=== PATIENT | male | born 1940 | race Caucasian/White ===

== ENCOUNTER 2018-12-14 02:52 | Inpatient (IN) | payer OTHER ==
[2018-12-14 03:43] LABS: #Eosinphils 0.1 thou/uL (0.0-0.7); #Lymphocytes 1.3 thou/uL (1.20-3.40); #Monocytes 1.2 thou/uL (0.11-0.59); #Neutrophils 9.2 thou/uL (1.40-6.50); %Basophils 0.2 % (0.0-1.0); %Eosinophils 0.5 % (0.0-10.0); %Lymphocytes 10.8 % (21.0-51.0); %Neutrophils 78.5 % (42.0-75.0); Hemoglobin 15.6 g/dL (14.0-18.0); Mean Corpuscular HGB CONC 32.3 g/dL (32.0-36.0); Mean Corpuscular Hemoglobin 27.5 pg (27.0-31.0); Mean Corpuscular Volume 85.2 fL (78.0-98.0); Mean Platelet Volume 8.9 fL (7.4-10.4); Platelet Count 181 thou/uL (130-400); Red Blood Cell (RBC) Count 5.66 mill/uL (4.70-6.10); White Blood Cell (WBC) Count 11.7 thou/uL (4.8-10.8)
[2018-12-14 03:50] LABS: INR-International Normal Ratio 1.1; Prothrombin Time 14.7 SEC (12.0-14.7)
[2018-12-14 03:51] LABS: PTT 25.4 SEC (22.9-36.1)
[2018-12-14 04:03] LABS: ALT (SGPT) 24 U/L (8-55); AST (SGOT) 51 U/L (5-34); Albumin 3.8 g/dL (3.4-4.8); Alkaline Phosphatase 45 U/L (40-150); Anion Gap 18 mmol/L (10-20); BUN (Urea Nitrogen) 26 mg/dL (8.4-25.7); Bilirubin, Total 1.2 mg/dL (0.2-1.2); Calc. Creatinine Clearance 0 mL/min (70-130); Calcium 9.4 mg/dL (7.8-10.44); Carbon Dioxide 21 mmol/L (23-31); Chloride 105 mmol/L (98-107); Estimated GFR-MDRD 52; Glucose 241 mg/dL (83-110); Potassium 3.9 mmol/L (3.5-5.1); Protein, Total 6.8 g/dL (5.8-8.1); Sodium 140 mmol/L (136-145)
[2018-12-14 04:25] LABS: CKMB 23.8 ng/mL (0-6.6)
[2018-12-14] MEDS ORDERED: levETIRAcetam In NaCl (Iso-Os) 1,500 MG in Premix Bag 1 BAG IVPB SCH (04:30)
[2018-12-14] MEDS ORDERED: Dextrose 50% Abboject 50 ML SYRINGE SLOW IVP PRN ×2 (05:36→09:57)
[2018-12-14] MEDS ORDERED: Ondansetron ODT 4 MG TAB PO PRN (05:36)
[2018-12-14] MEDS ORDERED: Dextrose 5% in Water 1,000 ML IV PRN ×2 (05:36→09:57)
[2018-12-14] MEDS ORDERED: Morphine 4 MG/ML VIAL SLOW IVP PRN (05:36)
[2018-12-14] MEDS ORDERED: Ondansetron PF 4 MG/2 ML Vial IVP PRN (05:36)
[2018-12-14] MEDS ORDERED: Acetaminophen 500 MG TAB PO PRN (05:46)
[2018-12-14 06:04] LABS: Bilirubin Negative (Negative); Blood, Urine Large (Negative); Clarity CLEAR (Clear); Glucose, Urine (Dipstick) 500 mg/dL (Negative); Leukocyte Small (Negative); Nitrite Negative (Negative); Protein, Urine (Dipstick) 100 mg/dL (Neg-Trace); Urobilinogen 0.2 mg/dL (0.2-1.0); pH, Urine 5.5 (5.0-9.0)
[2018-12-14 06:07] LABS: Bacteria/HPF None Seen HPF (None Seen); Hyaline Casts/LPF 4-6 HYALINE CAST LPF (0-3 Hyaline); Pathc Cast-AUWi Flag 0.54 (0-2.49); Squamous Epithelial 0-3 HPF (0-3)
[2018-12-14 06:19] LABS: RBC/HPF 21-50 HPF (0-3)
[2018-12-14 06:21] LABS: Renal Epithelial 0-3 HPF (0-3)
[2018-12-14] MEDS: Sodium Chloride 0.9% 1,000 ML IV SCH ×4 (06:34→20:05)
[2018-12-14 06:51] VITALS: BMI 25.7
--- NOTE | 2018-12-14 07:48 | PDOC.GSPN ---
Surgery Progress Note: Subj - Subjective Narrative: Sleeping this am but nurse says awakens to voice to answer questions Surgery Progress Note: Obj - Vital signs Vital signs: Vital Signs - Most Recent Temp Pulse Resp BP Pulse Ox 97.7 F 98 12/14/18 07:15 12/14/18 06:24 - Physical Exam General: no distress Cardiovascular: regular rate and rhythm Respiratory: clear to auscultation Abdomen: soft, non tender (Neuro: GCS 13, eyes to voice, confused) Surgery Progress Note: Results - Labs Result Diagrams: 12/14/18 03:33 12/14/18 03:33 Lab results: Laboratory Results - last 24 hr 12/14/18 12/14/18 12/14/18 03:33 03:33 03:33 WBC RBC Hgb Hct MCV MCH MCHC RDW Plt Count MPV Neutrophils % Lymphocytes % Monocytes % Eosinophils % Basophils % Neutrophils # Lymphocytes # Monocytes # Eosinophils # Basophils # PT 14.7 INR 1.1 APTT 25.4 Sodium 140 Potassium 3.9 Chloride 105 Carbon Dioxide 21 L Anion Gap 18 BUN 26 H Creatinine 1.33 H Estimated GFR (MDRD) 52 Glucose 241 H Calcium 9.4 Total Bilirubin 1.2 AST 51 H ALT 24 Alkaline Phosphatase 45 CK-MB (CK-2) 23.8 H* Troponin I 0.039 H Serum Total Protein 6.8 Albumin 3.8 Globulin 3.0 Albumin/Globulin Ratio 1.3 Urine Color Urine Clarity Urine pH Ur Specific [place] Urine Protein Urine Glucose (UA) Urine Ketones Urine Blood Urine Nitrite Urine Bilirubin Urine Urobilinogen Ur Leukocyte Esterase Urine RBC Urine WBC Ur Squamous Epith Cells Ur Renal Epithelial Cell Urine Bacteria Hyaline Casts 12/14/18 12/14/18 03:33 05:45 WBC 11.7 H RBC 5.66 Hgb 15.6 Hct 48.2 MCV 85.2 MCH 27.5 MCHC 32.3 RDW 13.0 Plt Count 181 MPV 8.9 Neutrophils % 78.5 H Lymphocytes % 10.8 L Monocytes % 10.0 Eosinophils % 0.5 Basophils % 0.2 Neutrophils # 9.2 H Lymphocytes # 1.3 Monocytes # 1.2 H Eosinophils # 0.1 Basophils # 0.0 PT INR APTT Sodium Potassium Chloride Carbon Dioxide Anion Gap BUN Creatinine Estimated GFR (MDRD) Glucose Calcium Total Bilirubin AST ALT Alkaline Phosphatase CK-MB (CK-2) Troponin I Serum Total Protein Albumin Globulin Albumin/Globulin Ratio Urine Color YELLOW Urine Clarity CLEAR Urine pH 5.5 Ur Specific [place] 1.020 Urine Protein 100 H Urine Glucose (UA) 500 H Urine Ketones 15 H Urine Blood Large H Urine Nitrite Negative Urine Bilirubin Negative Urine Urobilinogen 0.2 Ur Leukocyte Esterase Small H Urine RBC 21-50 H Urine WBC 11-20 H Ur Squamous Epith Cells 0-3 Ur Renal Epithelial Cell 0-3 Urine Bacteria None Seen Hyaline Casts 4-6 HYALINE CAST H Surgery Progress Note: A/P - Problem (1) Subdural hematoma Current Visit: Yes Code(s): S06.5X9A - TRAUM SUBDR HEM W LOC OF UNSP DURATION , INIT Status: Acute - Plan Plan: With [facility] -continue obs, continue neuro checks. -see Lizzie More NP H&P for full details -Neurosurg to see
[2018-12-14 08:20] LABS: CKMB 18.4 ng/mL (0-6.6)
[2018-12-14] MEDS ORDERED: Ciprofloxacin 500 MG TAB PO SCH ×2 (08:45→20:00)
[2018-12-14] MEDS: Famotidine/PF 20 mg/2ml Vial SLOW IVP SCH ×2 (09:27→20:04)
[2018-12-14] MEDS ORDERED: HumaLOG 300 UNITS/3 ML VIAL SC PRN (09:57)
--- NOTE | 2018-12-14 10:32 | RAD ---
RADIOGRAPH CHEST 1 VIEW: DATE: 12/14/2018 HISTORY: 78-year-old male with sepsis FINDINGS: There is no airspace density, pulmonary edema, or pneumothorax. The lateral costophrenic angles are n ot effaced. Evidence of previous CABG. Left subclavian dual lead pacemaker. IMPRESSION: No acute pulmonary findings.
--- NOTE | 2018-12-14 10:50 | HP ---
CONSULTS: Neurosurgery. HISTORY OF PRESENT ILLNESS: This is a 78-year-old gentleman, who was a transfer from [facility]. The patient is an inmate, who fell approximately 5 days ago. The patient denies being weak, dizzy, shortness of breath, or chest pain prior to falling, although the patient is unclear of how he fell. The patient was evaluated and a CT scan was found to be normal. The patient was then discharged back to long term in [place]. The patient returned to [facility] for altered mental status on 12/13/2018. The patient was found to have bilateral subdural hematomas 8 mm on the left and small parafalcine subarachnoid hemorrhage, no midline shift. The patient also reports that he had a shaking episode of the right upper and right lower extremities a couple of days after the initial fall. The patient was also diagnosed with a urinary tract infection. The patient was evaluated by Dr. Douglas in the emergency room and Neurosurgery was also consulted. Trauma Service was asked to admit the patient. The patient has had no seizure-like activity. No fevers. No chills. The patient currently has no complaints at this time. The patient denies any chest pain or shortness of breath. The patient does have mild swelling to the left lower extremity with redness and +1 pitting edema in which he says is normal for him, this is the site where his bypass graft was obtained. The patient with significant past medical history of coronary artery disease. The patient was given Rocephin and started on Keppra IV in the emergency room. The patient is currently awake, alert, and oriented x3. The patient is very slow when answering questions. PAST MEDICAL HISTORY: Coronary artery disease; type 2 diabetes; COPD; CHF; hyperlipidemia; hypertension; GERD; pacemaker, which was placed in 2011; anemia; angina; frequent boils; arthritis; and enlarged prostate. PAST SURGICAL HISTORY: CABG in 1991, cardiac stents. SOCIAL HISTORY: The patient is an inmate of the [employer]. The patient has smoked for 50 years, stopped in 1991. ALLERGIES: DENIES ANY DRUG ALLERGIES. HOME MEDICATIONS: 1. Amlodipine 10 mg daily. 2. Aspirin 81 mg daily. 3. Digoxin 0.125 mg daily. 4. Glipizide 5 mg daily. 5. Lasix 40 mg once a day in the morning. 6. Lisinopril 10 mg daily. 7. Metoprolol 25 mg 2 times a day. 8. Omeprazole 20 mg daily. PHYSICAL EXAMINATION: VITAL SIGNS: Temperature 98.7, SpO2 of 99% on room air, respirations 16, pulse 76, and blood pressure 154/87. GENERAL: The patient is awake and alert, in no distress. The patient answers questions very slowly, oriented to person, place, and time. GCS 15. HEENT: Head is atraumatic, normocephalic. Small healing abrasion to the right forehead, bruising to the right chin area and bridge of nose area. Pupils equal and reactive at 3 mm bilateral. Mucous membranes dry. NECK: Trachea is midline. There is no cervical tenderness. Normal range of motion of neck. RESPIRATORY: Respirations even and unlabored. Bilateral breath sounds clear with no wheezing, rales, or rhonchi. HEART: Regular rate and rhythm. No murmurs noted. Demand pacer. ABDOMEN: Soft, nontender, and nondistended. Whelan catheter in place with concentrated urine. Positive bowel sounds. EXTREMITIES: Positive distal pulses 2+ in all extremities. Positive sensation in all extremities. Left lower extremity with +1 pitting pedal edema and redness with mild swelling. Normal strength in all extremities, 5+. NEURO: Speech is slow. The patient is oriented to person, place, and time. GCS of 15. LABORATORY DATA: WBC 11.7, RBC 5.66, hemoglobin 15.6, hematocrit 48.2, and platelets 181. PT 14.7, INR 1.1, and APTT 25.4. Sodium 140, potassium 3.9, chloride 105, carbon dioxide 21, anion gap 18, BUN 26, creatinine 1.33, estimated GFR 53, glucose 241, and calcium 9.4. Total bilirubin 1.2, AST 51, ALT 24, and alkaline phosphatase 45. CK 23.8, troponin 0.039. Serum total protein 6.8, albumin 3.8, globulin 3.0, albumin-globulin ratio 1.3. IMAGING DATA: Brain CT, pending official read. Small bilateral subdural hematoma, 8 mm on the left and small parafalcine subarachnoid hemorrhage, no midline shift. IMPRESSION: 1. Bilateral subdural hematoma and subarachnoid hemorrhage. 2. Urinary tract infection. 3. History of coronary artery disease. 4. Type 2 diabetes. PLAN: We will admit the patient to the IMCU with q.2 hours neuro checks. We will repeat a head CT. If any neuro changes, we will keep the patient n.p.o. per Neurosurgery request. We will start the patient on maintenance IV fluids. We will repeat troponin in 3 hours. We will keep the patient's systolic blood pressure less than 160 and keep head of bed elevated at 30. We will hold the patient's aspirin. We will obtain a lower extremity ultrasound of left lower extremity to rule out DVT. The plan will be discussed with the attending surgeon after this dictation. Job ID: [id number]
--- NOTE | 2018-12-14 10:52 | CT ---
EXAM: CT head without contrast: INDICATIONS: Follow-up subdural and subarachnoid hematoma COMPARISON: CT scan head 12/14/2018 at 4:00 AM FINDINGS: Bilateral chronic subdural hematomas again noted, not significantly changed. Acute falcine subdural hematoma superiorly on the right is unchanged in size and appearance. Scattered subarachnoid blood appears unchanged. Ventricles remain normal size and position. IMPRESSION: Stable findings
[2018-12-14 11:08] LABS: Anion Gap 15 mmol/L (10-20); BUN (Urea Nitrogen) 23 mg/dL (8.4-25.7); Calc. Creatinine Clearance 54 mL/min (70-130); Calcium 9.2 mg/dL (7.8-10.44); Carbon Dioxide 23 mmol/L (23-31); Chloride 105 mmol/L (98-107); Estimated GFR-MDRD 57; Glucose 218 mg/dL (83-110); Phosphorus 3.7 mg/dL (2.3-4.7); Sodium 139 mmol/L (136-145)
[2018-12-14 11:10] LABS: Lactic Acid 1.2 mmol/L (0.5-2.2)
[2018-12-14] MEDS: Tamsulosin HCl 0.4 MG CAP PO SCH (11:11)
[2018-12-14 11:12] LABS: Hemoglobin 15.2 g/dL (14.0-18.0); Mean Corpuscular HGB CONC 32.6 g/dL (32.0-36.0); Mean Corpuscular Hemoglobin 27.8 pg (27.0-31.0); Mean Corpuscular Volume 85.3 fL (78.0-98.0); Mean Platelet Volume 9.1 fL (7.4-10.4); Platelet Count 157 thou/uL (130-400); RBC Distribution Width 13.1 % (11.5-14.5); Red Blood Cell (RBC) Count 5.45 mill/uL (4.70-6.10)
[2018-12-14] MEDS: hydrALAZINE 20 MG/ML VIAL SLOW IVP PRN ×2 (11:19→20:14)
[2018-12-14 11:26] LABS: Band 1 % (5-11); Lymphocytes 5 % (21-51); MDiff Complete? YES; Monocytes 8 % (0-10); Neutrophil 80 % (42-75); Platelet Morphology Comment Appears Adequate; RBC Morphology Normal; Reactive Lymphocytes 6 % (0-10)
--- NOTE | 2018-12-14 12:53 | CT ---
PRELIMINARY REPORT/[facility]/EMERGENTY AFTER-HOURS PROCEDURE CT Head Without Contrast EXAM DATE/TIME: 12/14/2018 4:05 AM CLINICAL HISTORY: 78 years old, male; Condition or disease; Patient HX: Kaitlynn presents to the ED via EMS from another [facility] ED for neurosurgery consult. PT. Fell on 12/10/18 in half-way and had a head CT which was negative . PT then became progressively altered and presented to previous facility on 12/13 for AMS. Repeat head CT showed small bilat subdural hematoma, 8 mm on the left and small parafalcine subarachn oid hemorrhage, no midline shift. PT. States that he also had shaking of rue and rle a couple days ag o. TECHNIQUE: Imaging protocol: Axial computed tomography images of the head without contrast. COMPARISON: No relevant prior studies available. FINDINGS: Brain: Chronic bilateral subdural effusions versus chronic low-density subdural hematomas. Small acut e parafalcine subdural hematoma spanning 3 cm in length and 4 mm in maximum thickness. Midline shift: No midline shift or herniation. Ventricles: Normal. No ventriculomegaly. Bones/joints: Unremarkable. No acute fracture. Sinuses: Visualized sinuses are unremarkable. No fluid levels. Mastoid air cells: Visualized mastoid air cells are well aerated. No mastoid effusion. Soft tissues: Unremarkable. Other findings: Small multifocal subarachnoid hemorrhages. IMPRESSION: 1. Chronic bilateral subdural effusions versus chronic low-density subdural hematomas. 2. Small acute parafalcine subdural hematoma spanning 3 cm in length and 4 mm in maximum thickness. 3. Small multifocal subarachnoid hemorrhages. Thank you for allowing us to participate in the care of your patient. Dictated and Authenticated by: Patrick Tovar MD 12/14/2018 4:20 AM Central Time ([place] & [place]) FINAL REPORT CT HEAD WITHOUT CONTRAST: There are bilateral chronic subdural hematomas or hygromas seen over both frontal lobes. These are s ymmetric in size. There is acute blood in the subdural space superiorly on the right. There is an acute falcine subdur al hematoma seen superiorly to the right of midline measuring 4 mm thickness. There are scattered fo ci of subarachnoid blood seen in both cerebral hemispheres superiorly. These findings were noted on the preliminary report. I am in agreement with the preliminary report. POS: OFF
[2018-12-14 13:53] LABS: Troponin I 0.037 ng/mL (< 0.028)
--- NOTE | 2018-12-14 14:01 | CON ---
DATE OF CONSULTATION: This is Connie Castro PA-C dictating a report for Rodolfo Macario MD. HISTORY OF PRESENT ILLNESS: The patient is a 78-year-old male with a past medical history of coronary artery disease with prior bypass surgery, hypertension, hyperlipidemia, COPD, CHF, and diabetes, who reportedly suffered a mechanical [facility] at the shelter 5 days ago. At that time, he was evaluated in the [place] [facility] with a noncontrast CT head, which was reportedly normal at that time. The patient was brought back to the ER after he developed altered mental status. He had a repeat CT head, which was notable for bilateral chronic subdural hematomas and a small right parafalcine traumatic subarachnoid hemorrhage. The patient was transferred to [facility] for further management. There were no available beds at [facility]. It is also reported per history in [place] [facility] that the patient had a shaking episode with the right upper and right lower extremity suspicious for focal seizure activity. He is found to have multiple other abnormalities on his lab work including an elevated white count of 11.7 with a left shift, acute kidney injury with creatinine of 1.33 and a BUN of 26, elevated CK-MB and troponin as well as urinary tract infection. The patient was admitted to the Trauma Service and we also consulted for assistance in management of this patient. PAST MEDICAL HISTORY: Hypertension, hyperlipidemia, CHF, COPD, diabetes, and coronary artery disease. PAST SURGICAL HISTORY: CABG. SOCIAL HISTORY: The patient lives at the [facility]. He does not smoke, drink, or use any drugs. ALLERGIES: NO KNOWN ALLERGIES. REVIEW OF SYSTEMS: Unobtainable secondary to the patient's current condition. MEDICATIONS: 1. Amlodipine 10 mg tab, one tab p.o. daily. 2. Aspirin 81 mg tab, one tab p.o. daily. 3. Digoxin 125 mcg tab, one tab p.o. q.a.m. 4. Glipizide 2.5 mg tab, 2 tabs p.o. daily. 5. Lasix 20 mg tab, two tabs p.o. q.a.m. 6. Lisinopril 10 mg tab, one p.o. daily. 7. Metoprolol 25 mg tab, one tab p.o. b.i.d. 8. Omeprazole 40 mg tab, one-half tab p.o. daily. PHYSICAL EXAMINATION: VITAL SIGNS: Temperature is 97.7, blood pressure is 149/80, heart rate is 77, and the patient is a 98% on room air. GENERAL: GCS is currently 12. He will open his eyes to verbal response. He is confused and only oriented to person. He will localize pain, but is not following commands for me on exam. HEENT: Head; normocephalic and atraumatic. Eyes; PERRLA. Extraocular movements intact. ENT; oral mucosa is dry. NECK: Nontender to palpation. Free active range of motion. No meningismus or nuchal rigidity. RESPIRATORY: Symmetric chest expansion. No evidence of dyspnea. CARDIOVASCULAR: Regular rate and rhythm. MUSCULOSKELETAL: No obvious deformities. Symmetric pulses. He is seen moving all 4 spontaneously. NEURO: Confused. The patient is only oriented to person. He is seen moving all 4 spontaneously. ASSESSMENT AND PLAN: This is a 78-year-old male, status post fall 5 days ago, who was found to have bilateral chronic subdural hematomas and a small right parafalcine traumatic subarachnoid hemorrhage shown on CT. He is very confused, but also was found to have multiple metabolic abnormalities including acute kidney injury, urinary tract infection, and elevated cardiac enzymes. He also had questionable reports of focal motor seizure activity over the right side. He was given Keppra in the ER and will continue 500 mg IV b.i.d. We will plan to repeat his noncontrast CT head at noon and this will be 8 hours after the scan done in our department. At this point, I feel that his altered mental status is likely more related to his metabolic issues rather than his chronic subdural hematoma as we are recommending that he stop any aspirin. We will continue to follow along closely. I discussed this plan with Dr. Macario, who will also see the patient. Job ID: [id number]
--- NOTE | 2018-12-14 16:58 | PRG ---
DATE OF SERVICE: 12/14/2018 SUBJECTIVE: The patient was seen and examined. I agree with Connie Castro's evaluation on 12/14/2018. The patient is a 78-year-old man, who was incarcerated and fell 5 days ago, who reportedly with normal head CT. Progressive altered mental status led to evaluation last night and then transferred to this facility. He is currently arousable and interactive, but confused and slightly somnolent. He has no specific focal findings. The patient's head CT reveals bilateral chronic subdural hygromas without meaningful mass effect. There is some trace suggestion of new-traumatic subarachnoid hemorrhage. Parafalcine and insular sulci on the left. IMPRESSION AND PLAN: Chronic hygromas and trace new acute subarachnoid hemorrhage presumably related to his fall 5 days ago. Overall, these findings do not require intervention nor are they severe enough to explain his current altered mental status. I believe that his metabolic issues including the renal, urinary, and cardiac issues are likely more of an explanation for the altered mental status. No plans for neurosurgical intervention at this time. We will follow up on repeat head CT and arrange follow up in 4 weeks. Job ID: [id number]
[2018-12-14] MEDS: Nystatin Powder 15 GM BOT TOP SCH (20:05)
[2018-12-14] MEDS: Insulin Regular 300 UNITS/3 ML VIAL SC PRN (20:08)
[2018-12-14] MEDS ORDERED: Labetalol HCl 100 MG/20 ML VIAL SLOW IVP PRN (20:37)
[2018-12-14] MEDS: Atorvastatin Calcium 40 MG TAB PO SCH (20:41)
[2018-12-14] MEDS: Metoprolol Tartrate 25 MG TAB PO SCH (20:42)
--- NOTE | 2018-12-14 20:55 | PRG ---
DATE OF SERVICE: 12/14/2018 SUBJECTIVE: The patient was seen and evaluated this morning in the [facility]. It was found that he had a decline in GCS from 15 at admission to 13 upon my evaluation. GCS was eyes 3, verbal 4, and motor 6. Neurosurgery was contacted and a repeat head CT was completed a couple hours early. Repeat head CT was stable from previous. Lab studies including CBC, BMP, BNP, lactic acid, troponin, EKG, echo, and blood and urine cultures were also ordered. The patient was maintaining his own airway and he was hemodynamically stable. He was able to follow commands, but he was only opening eyes to sternal rub, eventually did say a few words, but could not answer questions appropriately. No seizure-like activity was noted at that time. Upon my evaluation in the afternoon, the patient's GCS was back to 15 and he was answering questions appropriately, complained about some right eye soreness and stated that that was not anything new. The patient is a very odd person and it is difficult to assess whether this is a mentation issue due to a chronic traumatic or metabolic encephalopathy versus personality that is baseline. OBJECTIVE: VITAL SIGNS: Temperature 98.1, pulse 72, respirations 15, oxygen saturation 98% on room air, and blood pressure 167/65. GENERAL: Elderly male, sitting up in bed with no signs of acute distress. NEUROLOGIC: GCS is 13; eyes 3, verbal 4, and motor 6. Pupils equal, round, reactive to light. CARDIAC: Regular rate and rhythm. No murmurs, gallops, or rubs. PULMONARY: Equal chest rise and fall. Clear breath sounds bilaterally. GI: Abdomen is soft, nontender, and nondistended. EXTREMITIES: 2+ pulses in all extremities. 1+ swelling to bilateral lower extremities. Gross motor and sensation are intact. LABORATORY FINDINGS: White count 11.7, hemoglobin 15.6, hematocrit 48.2, and platelets 181. Sodium 140, potassium 3.9, chloride 105, carbon dioxide 21, BUN 26, creatinine 1.33, glucose 241. Troponin 0.42 from 0.39. ASSESSMENT: 1. Status post fall with delayed presentation, bilateral subdural hematoma and then subarachnoid hematoma, and urinary tract infection, present on admission. 2. History of diabetes, chronic obstructive pulmonary disease, hyperlipidemia, hypertension, gastroesophageal reflux disease, pacemaker, anemia, angina, coronary artery disease, congestive heart failure, coronary artery bypass grafting. PLAN: The patient was moved to the ICU from the [facility] after a decline in mentation. Repeat head CT was normal. CBC, CMP, BNP, magnesium, phosphorus, troponin, EKG, echo, ammonia level, lactic acid were all ordered for further evaluation. Blood and urine cultures were also sent. Connie with Dr. Macario was contacted to know about the GCS change. In the afternoon, the patient's GCS returned back to 15 and he was acting normal at his baseline. Continue Cipro b.i.d. IV for UTI. Also start nystatin for redness of the penis. Continue Keppra 500 mg b.i.d. for previous reported history of seizure-like activity, none noted today. PT/OT to work with the patient. Speech Language Pathology saw him today, recommended a regular diet. The patient was discussed with Dr. Marcum before this dictation. Job ID: [id number]
[2018-12-15] MEDS: Sodium Chloride 0.9% 1,000 ML IV SCH (02:57)
[2018-12-15] MEDS: Insulin Regular 300 UNITS/3 ML VIAL SC PRN ×3 (03:35→17:55)
[2018-12-15 05:21] LABS: Band 9 % (5-11); Hemoglobin 14.3 g/dL (14.0-18.0); Lymphocytes 10 % (21-51); MDiff Complete? YES; Mean Corpuscular HGB CONC 33.2 g/dL (32.0-36.0); Mean Corpuscular Hemoglobin 28.4 pg (27.0-31.0); Mean Corpuscular Volume 85.6 fL (78.0-98.0); Mean Platelet Volume 8.9 fL (7.4-10.4); Monocytes 6 % (0-10); Neutrophil 74 % (42-75); Platelet Count 152 thou/uL (130-400); Platelet Morphology Comment Appears Adequate; Red Blood Cell (RBC) Count 5.02 mill/uL (4.70-6.10); White Blood Cell (WBC) Count 9.5 thou/uL (4.8-10.8)
[2018-12-15 05:28] LABS: Anion Gap 14 mmol/L (10-20); BUN (Urea Nitrogen) 19 mg/dL (8.4-25.7); Calc. Creatinine Clearance 59 mL/min (70-130); Calcium 8.9 mg/dL (7.8-10.44); Carbon Dioxide 22 mmol/L (23-31); Chloride 109 mmol/L (98-107); Estimated GFR-MDRD 63; Glucose 189 mg/dL (83-110); Magnesium 1.8 mg/dL (1.6-2.6); Phosphorus 3.1 mg/dL (2.3-4.7); Potassium 3.6 mmol/L (3.5-5.1); Sodium 141 mmol/L (136-145)
[2018-12-15] MEDS ORDERED: Magnesium 2 GM/50 ML 2 GM in Premix Bag 1 BAG IVPB SCH (08:00)
[2018-12-15] MEDS ORDERED: Potassium Phosphate 15 MMOL in Sodium Chloride 0.9% 250 ML 250 ML IVPB SCH (08:00)
[2018-12-15] MEDS: Famotidine/PF 20 mg/2ml Vial SLOW IVP SCH (08:43)
[2018-12-15] MEDS: Digoxin 0.125 MG TAB PO SCH ×2 (10:04→10:21)
[2018-12-15] MEDS: Metoprolol Tartrate 25 MG TAB PO SCH ×3 (10:04→20:03)
[2018-12-15] MEDS: Tamsulosin HCl 0.4 MG CAP PO SCH ×2 (10:04→10:22)
[2018-12-15] MEDS: Nystatin Powder 15 GM BOT TOP SCH ×2 (10:22→20:27)
--- NOTE | 2018-12-15 15:36 | PRG ---
DATE OF SERVICE: 12/15/2018 SUBJECTIVE: Mr. Santos is a 78-year-old man, an inmate of a correctional facility, who was admitted yesterday following a fall secondary to a near syncopal episode. CT scan of the brain is remarkable for bilateral small subarachnoid and subdural hematomas. The patient was placed on Keppra for history of apparent seizure activity. An interval repeat CT scan of the brain reveals a stable intracranial hemorrhages. This morning, the patient is somnolent, but arouses to deep tactile stimulation. When he awakens, he moves all extremities and does follow commands. This gives him a Sadie Coma Scale of E3, V3, M6. OBJECTIVE: VITAL SIGNS: This morning include blood pressure 162/75, pulse 71, respiratory rate is 14, temperature is 98.3 degrees Fahrenheit, oxygen saturation 96% on room air. HEENT: Reveals pupils are equal, round, reactive to light bilaterally. HEART: Reveals regular rate and rhythm. LUNGS: Clear to auscultation bilaterally. Breathing, regular and nonlabored. ABDOMEN: Soft, nontender, nondistended. NEUROLOGIC: Reveals no focal deficits present. Upon further review of chart, the correctional facility reports no witnessed seizure. The patient reportedly gave a history of uncontrollable shaking prior to transfer to the emergency department. LABORATORY FINDINGS: Today includes a CBC with 9500 white blood cells, hemoglobin and hematocrit are stable at 14.3 and 43 respectively. Platelet count is 152,000. Metabolic profile; sodium 141, potassium 3.6, chloride is 109, bicarb is 22, BUN 19, creatinine is 1.13, glucose 189, magnesium 1.8 and phosphorus is 3.1. I have personally reviewed the repeat CT scan of the brain yesterday, which reveals a stable bilateral chronic subdural hematomas as well as scattered right sided subarachnoid hemorrhages. IMPRESSIONS: 1. 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 2. Stable right subarachnoid hemorrhage. PLAN: I discussed with Neurosurgery. We both concurred that the patient's current neurological examination is not from the intracranial hemorrhages. Since it is apparent that the patient probably did not have any seizure, we will withhold the Keppra at this time with serial neurological examination. Job ID: [id number]
[2018-12-15] MEDS: Atorvastatin Calcium 40 MG TAB PO SCH (20:03)
[2018-12-16] MEDS: Insulin Regular 300 UNITS/3 ML VIAL SC PRN (00:06)
[2018-12-16 07:30] LABS: Anion Gap 13 mmol/L (10-20); BUN (Urea Nitrogen) 15 mg/dL (8.4-25.7); Calc. Creatinine Clearance 67 mL/min (70-130); Calcium 8.6 mg/dL (7.8-10.44); Carbon Dioxide 22 mmol/L (23-31); Chloride 102 mmol/L (98-107); Estimated GFR-MDRD 72; Glucose 160 mg/dL (83-110); Magnesium 2.1 mg/dL (1.6-2.6); Phosphorus 3.4 mg/dL (2.3-4.7); Potassium 3.8 mmol/L (3.5-5.1); Sodium 133 mmol/L (136-145)
[2018-12-16] MEDS ORDERED: Potassium Chloride 20 MEQ TAB PO SCH (08:00)
[2018-12-16] MEDS: Tamsulosin HCl 0.4 MG CAP PO SCH (08:46)
[2018-12-16] MEDS: Digoxin 0.125 MG TAB PO SCH (08:46)
[2018-12-16] MEDS: Metoprolol Tartrate 25 MG TAB PO SCH (08:47)
[2018-12-16] MEDS: Nystatin Powder 15 GM BOT TOP SCH (08:47)
[2018-12-16] MEDS ORDERED: glipiZIDE 5 MG TAB PO SCH (09:00)
--- NOTE | 2018-12-16 10:20 | PQF ---
ZOFIA PRASAD CELINAMANUELITO Decker [id number] SURG A- [id number] CLINICAL DOCUMENTATION IMPROVEMENT CLARIFICATION FORM: ICD-10 Updated PLEASE DO AN ADDENDUM TO THE PROGRESS NOTE WITH ANY DOCUMENTATION UPDATES OR ADDITIONS AND CARRY THROUGH TO DC SUMMARY. THANK YOU. DATE: 12/16 ATTN: DR. KRISTA SOLIS Please exercise your independent, professional judgment in responding to the clarification form. Clinical indicators are provided on the bottom of this form for your review. Please check appropriate box(s): [ ] Encephalopathy: Type: [ ] Acute [ ] Subacute [ ] Chronic Etiology: [ x ] Metabolic [ ] Toxic [ ] Other diagnosis [ ] Unable to determine In addition, please specify: Present on Admission (POA): [ x ] Yes [ ] No [ ] Unable to determine For continuity of documentation, please document condition throughout progress notes and discharge summary. Thank You. CLINICAL INDICATORS - SIGNS / SYMPTOMS / LABS ER PHYSICIAN DOCUMENTATION 12/14: PT FELL ON 12/10/09 IN SNF & HEAD CT WAS NEGATIVE. PT THEN BECAME PROGRESSIVELY ALTERED. PT ALSO DX WITH UTI. PT ORIENTED TO PERSON. H&P (ALEXANDRA) 12/14: PHYS EX: NEURO: PT IS ORIENTED TO PERSON, PLACE, & TIME. GCS OF 15; IMPRESSION: 1) B SDH & SAH; 2) UTI NEURO SX CONSULT (DEVEN) 12/14: HX OF PRESENT ILLNESS: ...HE IS FOUND TO HAVE MULTIPLE OTHER ABNORMALITIES ON HIS LAB WORK INCLUDING AN ELEVATED WBC 11.7, SHANTEL W/CR 1.33 & BUN 26, AND A UTI WELL. ASSESSMENT/PLAN (DEVEN): HE IS VERY CONFUSED, BUT ALSO WAS FOUND TO HAVE MULTIPLE METABOLIC ABNORMALITIES INCLUDING SHANTEL, UTI & ELEVATED CARDIAC ENZYMES. ...AT THIS POINT, I FEEL THAT HIS AMS IS LIKELY MORE R/T HIS METABOLIC ISSUES RATHER THAN HIS CHRONIC SDH. ASSESSMENT/PLAN (MARGIE) 12/14: ...I BELIEVE THAT HIS METABOLIC ISSUES INCLUDING THE RENAL,, URINARY, & CARDIAC ISSUES ARE LIKELY MORE OF AN EXPLANATION FOR THE AMS. ATTENDING PN 12/14 (DENTON): SUBJ: ...THE PT IS VERY ODD & IT IS DIFFICULT TO ASSESS WHETHER THIS IS A MENTATION ISSUE D/T CHRONIC TRAUMATIC OR METABOLIC ENCEPHALOPATHY VS PERSONALITY THAT IS BASELINE. ATTENDING PN 12/15 (OHAJU): PLAN: DISCUSSED W/NEUROSURGERY. WE BOTH CONCURRED THAT THE PT'S CURRENT NEUROLOGICAL EXAM IS NOT FROM THE INTRACRANIAL HEMORRHAGES. RISKS: S/P FALL W/ AMS (12/10) UTI (H&P) SHANTEL (NEURO SX CON 12/14) TREATMENT: IV ANTIBIOTIC (ROCEPHIN IN ER; CIPRO 12/14 - PRESENT) IVF (NS 12/14) ICU MONITORING W/NEURO CHECKS (12/14) THANK YOU! Ashley (This form is maintained as a part of the permanent medical record) 2014 [employer] All Rights Reserved Ashley Mcfarlane RN, BSN [email or web address] Office: [phone] [facility]
[2018-12-16 15:26] VITALS: BP 156/79; TEMP 98.4
--- NOTE | 2018-12-17 04:47 | DIS ---
DATE OF ADMISSION: 12/14/2018 DATE OF DISCHARGE: 12/16/2018 ADMISSION DIAGNOSES: 1. Status post mechanical fall with delayed presentation. 2. Small bilateral subdural hematomas. 3. Urinary tract infection. 4. Acute kidney injury, change in mentation. DISCHARGE DIAGNOSES: 1. Status post mechanical fall with delayed presentation. 2. Small bilateral subdural hematomas. 3. Urinary tract infection. 4. Acute kidney injury, change in mentation. CONSULTING PHYSICIAN: Dr. Macario of Neurosurgery. PROCEDURES: None. HOSPITAL COURSE: The patient is a 78-year-old male who presented to the emergency department from [facility]. He is incarcerated. Reports that he fell 5 days ago before presentation and had a decline in his mentation and subsequently, was sent to [place] ED where he received a CT of the head C-spine, which demonstrated small bilateral subdural hematomas. The patient was also noted to have a UTI and SHANTEL. He was placed in ICU and during the morning time, it was noted that he had a decline in his GCS from 15 to 13. He received a repeat head CT at that time, which demonstrated stable bilateral subdural hematomas. He was also started on Cipro at that time. At some point, it was thought the patient had seizure-like activity in snf, and subsequently, he was started on Keppra. This is what made the patient to have a change in mentation, it was subsequently held, and snf officials reported that there was no witnessed seizure-like activity. This was discussed with Dr. Macario, who also agreed the patient did not need Keppra. He also underwent evaluation and received laboratory studies, echo, EKG, and blood urine cultures. After the Keppra was held, the patient's mentation greatly improved. He intermittently would refuse some certain scheduled medications. At the time of discharge, the patient's pain was well controlled. He was tolerating a diabetic diet. He was voiding without difficulties. DISCHARGE DISPOSITION: Mcc. DISCHARGE CONDITION: Satisfactory. PHYSICAL EXAMINATION: VITAL SIGNS: Temperature 98.3, pulse 69, respirations 16, oxygen saturation 98% on room air, and blood pressure 152/78. GENERAL: Well-appearing elderly male, sitting up in bed with no signs of acute distress. NEUROLOGIC: GCS is 15. Gross motor and sensation are intact. No focal neurological deficits. PULMONARY: Equal chest rise and fall. Clear breath sounds bilaterally. No signs of acute respiratory distress. CARDIAC: Regular rate and rhythm. No murmurs, gallops, or rubs. GASTROINTESTINAL: Abdomen is soft, nontender, nondistended. EXTREMITIES: 2+ pulses in all extremities. 1+ edema in bilateral lower extremities. This is his baseline. Gross motor and sensation intact in all extremities. DISCHARGE INSTRUCTIONS: The patient is to be discharged to snf. Continue all of his home medications and add Cipro 250 mg q.6 hours for one additional day for Cipro treatment. He is to follow up with Dr. Macario in 4 weeks. He has activity as tolerated, diabetic diet. He has no therapy needs. DISCHARGE MEDICATIONS: Include: 1. Cipro 250 mg p.o. q.12 hours for one additional day, total of 2 pills. 2. Other medications include restarting all of his home medications. FOLLOWUP APPOINTMENTS: The patient is to follow up with Dr. Macario of Neurosurgery in 4 weeks. This is merely a summary of the patient's hospitalization. For full details, please see his medical record in its entirety. Job ID: [id number]
== END 2018-12-16 19:27 | DRG 85 ==
LOC: ERS 02:52 → SURG A 06:16 → IMCU/EMU 06:17 → CCU 11:02 → SURG A 12-15 14:43
PROVIDERS: ADMIT Surgery; ATTEND Surgery
DX: S06.5X0A Traumatic subdural hemorrhage without loss of consciousness, initial encounter (principal); G93.41 Metabolic encephalopathy; N39.0 Urinary tract infection, site not specified; N17.9 Acute kidney failure, unspecified; S06.6X0A Traumatic subarachnoid hemorrhage without loss of consciousness, initial encounter; I25.10 Atherosclerotic heart disease of native coronary artery without angina pectoris; E11.9 Type 2 diabetes mellitus without complications; J44.9 Chronic obstructive pulmonary disease, unspecified; I11.0 Hypertensive heart disease with heart failure; I50.9 Heart failure, unspecified; E78.5 Hyperlipidemia, unspecified; K21.9 Gastro-esophageal reflux disease without esophagitis; M19.91 Primary osteoarthritis, unspecified site; N40.0 Benign prostatic hyperplasia without lower urinary tract symptoms; W19.XXXA Unspecified fall, initial encounter; Z95.0 Presence of cardiac pacemaker; Z95.1 Presence of aortocoronary bypass graft; Z79.82 Long term (current) use of aspirin
CPT/HCPCS: 36415; 36416; 70450; 71045; 80048; 80053; 81003; 81015; 82140; 82553; 83605; 83735; 83880; 84100; 84484; 85007; 85025; 85027; 85610; 85730; 87040; 87086; 93005; 93306; 96365; J0360; J0744; J1815; J1953; J3475; J7050; S0028